=== PATIENT | female | born 1975 | race Caucasian/White ===

== ENCOUNTER 2017-06-14 12:51 | Emergency (ER) | payer OTHER, MEDICARE ==
[~2017-06-14] VITALS: Ht 157.5 cm; Wt 66.0 kg
[2017-06-14 12:53] VITALS: BP 132/80; PULSE 74; RESP 20; TEMP 98.8; O2SAT 98
[2017-06-14 13:25] VITALS: O2SAT 97
--- NOTE | 2017-06-14 13:27 | PD ---
HPI Chief Complaint: Edema Time Seen by Provider: 13:08 Travel History International Travel<30 days: No Contact w/Intl Traveler<30days: No Traveled to known affect area: No History of Present Illness HPI Patient is a 42-year-old female who presents to emergency room complaints of bilateral lower extremity leg edema. Patient reports that for the past 2-3 days , she has noticed increased swelling in her legs, she has noticed worsening swelling in the right lower extremity when compared to her left lower extremity. Patient reports no recent travels or trips, denies history of PE or DVT. Patient denies any chest pain or shortness of breath, reports that sometimes when she has increased swelling, she has shooting pains to different areas of body. Patient with no chest pain or shortness breath at this time. 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 She also has history of seizures. Denies any vision change or neuro deficits. Reports that she has left upper and left lower extremity weakness at baseline neurological deficits after her AVM surgery as a child. [facility] Social History Alcohol Use: No Tobacco Use: No Substance Use: No Allergies-Medications (Allergen,Severity, Reaction): Coded Allergies: No Known Allergies (Verified Allergy, Unknown, 06/14/17) Reported Meds & Prescriptions Reported Meds & Active Scripts Active Reported Simvastatin 10 Mg Tab 10 Mg PO DAILY Carbamazepine 200 Mg Tab 200 Mg PO BID Gabapentin 600 Mg Tab 600 Mg PO TID Review of Systems General / Constitutional: No: Fever Eyes: No: Visual changes HENT: No: Headaches Cardiovascular: No: Chest Pain or Discomfort Respiratory: No: Shortness of Breath Gastrointestinal: No: Abdominal Pain Genitourinary: No: Dysuria Musculoskeletal: Positive: Edema, No: Pain Skin: No Rash Neurologic: No: Weakness Psychiatric: No: Depression Endocrine: No: Polydipsia Hematologic/Lymphatic: No: Easy Bruising Physical Exam Narrative GENERAL: NAD SKIN: Focused skin assessment warm/dry. HEAD: Atraumatic. Normocephalic. EYES: Pupils equal and round. No scleral icterus. No injection or drainage. ENT: No nasal bleeding or discharge. Mucous membranes pink and moist. NECK: Trachea midline. No JVD. CARDIOVASCULAR: Regular rate and rhythm. No murmur appreciated. RESPIRATORY: No accessory muscle use. Clear to auscultation. Breath sounds equal bilaterally. GASTROINTESTINAL: Abdomen soft, non-tender, nondistended. Hepatic and splenic margins not palpable. MUSCULOSKELETAL: No obvious deformities. No clubbing. No cyanosis. +2 edema to RLL, pulses intact, neurovascularly intact NEUROLOGICAL: Awake and alert. No obvious cranial nerve deficits. Motor grossly within normal limits. Normal speech. PSYCHIATRIC: Appropriate mood and affect; insight and judgment normal. Data Data Last Documented VS Vital Signs Date Time Temp Pulse Resp B/P (MAP) Pulse Ox O2 Delivery O2 Flow Rate FiO2 06/14/17 13:25 97 Room Air 06/14/17 12:53 98.8 74 20 Orders Orders Complete Blood Count With Diff (06/14/17 13:) Comprehensive Metabolic Panel (06/14/17 13:17) Act Partial Throm Time (Ptt) (06/14/17 13:17) Prothrombin Time / Inr (Pt) (06/14/17 13:17) Magnesium (Mg) (06/14/17 13:17) Urinalysis - C+S If Indicated (06/14/17 13:17) Iv Access Insert/Monitor (06/14/17 13:17) Electrocardiogram (06/14/17 13:17) Ecg Monitoring (06/14/17 13:17) Oximetry (06/14/17 13:17) Sodium Chloride 0.9% Flush (Ns Flush) (06/14/17 13:30) Us Leg Venous Doppler Bilat (06/14/17 ) Ed Urine Pregnancytest Poc (06/14/17 13:20) Carbamazepine (Tegretol) (06/14/17 13:25) Labs Laboratory Tests Test 06/14/17 13:20 06/14/17 13:30 Urine Color YELLOW Urine Turbidity HAZY Urine pH 8.0 Urine Specific [place] 1.023 Urine Protein TRACE mg/dL Urine Glucose (UA) NEG mg/dL Urine Ketones NEG mg/dL Urine Occult Blood NEG Urine Nitrite NEG Urine Bilirubin NEG Urine Urobilinogen LESS THAN 2.0 MG/DL Urine Leukocyte Esterase NEG Urine RBC 4 /hpf Urine WBC 1 /hpf Urine Squamous Epithelial Cells 2 /hpf Urine Mucus FEW /lpf Microscopic Urinalysis Comment CULT NOT INDICATED White Blood Count 9.7 TH/MM3 Red Blood Count 4.45 MIL/MM3 Hemoglobin 11.3 GM/DL Hematocrit 34.3 % Mean Corpuscular Volume 77.0 FL Mean Corpuscular Hemoglobin 25.4 PG Mean Corpuscular Hemoglobin Concent 32.9 % Red Cell Distribution Width 15.7 % Platelet Count 257 TH/MM3 Mean Platelet Volume 9.1 FL Neutrophils (%) (Auto) 70.5 % Lymphocytes (%) (Auto) 22.4 % Monocytes (%) (Auto) 6.8 % Eosinophils (%) (Auto) 0.0 % Basophils (%) (Auto) 0.3 % Neutrophils # (Auto) 6.8 TH/MM3 Lymphocytes # (Auto) 2.2 TH/MM3 Monocytes # (Auto) 0.7 TH/MM3 Eosinophils # (Auto) 0.0 TH/MM3 Basophils # (Auto) 0.0 TH/MM3 CBC Comment DIFF FINAL Differential Comment Prothrombin Time 10.4 SEC Prothromb Time International Ratio 0.9 RATIO Activated Partial Thromboplast Time 23.7 SEC Blood Urea Nitrogen 7 MG/DL Creatinine 0.51 MG/DL Random Glucose 87 MG/DL Total Protein 7.0 GM/DL Albumin 3.3 GM/DL Calcium Level 8.5 MG/DL Magnesium Level 1.9 MG/DL Alkaline Phosphatase 72 U/L Aspartate Amino Transf (AST/SGOT) 35 U/L Alanine Aminotransferase (ALT/SGPT) 17 U/L Total Bilirubin 0.3 MG/DL Sodium Level 138 MEQ/L Potassium Level 4.3 MEQ/L Chloride Level 106 MEQ/L Carbon Dioxide Level 25.3 MEQ/L Anion Gap 7 MEQ/L Estimat Glomerular Filtration Rate 134 ML/MIN Carbamazepine (Tegretol) Level 16.5 MCG/ML MDM Medical Decision Making Medical Screen Exam Complete: Yes Emergency Medical Condition: Yes Interpretation(s) EKG at 1319: NSR at 80bpm, qt/qtc: 379/415, no acute st or t wave changes Vital Signs Date Time Temp Pulse Resp B/P (MAP) Pulse Ox O2 Delivery O2 Flow Rate FiO2 06/14/17 13:25 97 Room Air 06/14/17 12:53 98.8 74 20 132/80 (97) 98 Room Air Laboratory Tests Test 06/14/17 13:20 06/14/17 13:30 Urine Color YELLOW (YELLW/STRAW) Urine Turbidity HAZY (CLEAR) Urine pH 8.0 (5.0-8.5) Urine Specific [place] 1.023 (1.002-1.035) Urine Protein TRACE mg/dL (NEG-TRACE) Urine Glucose (UA) NEG mg/dL (NEG) Urine Ketones NEG mg/dL (NEG) Urine Occult Blood NEG (NEG) Urine Nitrite NEG (NEG) Urine Bilirubin NEG (NEG) Urine Urobilinogen LESS THAN 2.0 MG/DL (LESS Urine Leukocyte Esterase NEG (NEG) Urine RBC 4 /hpf (0-3) Urine WBC 1 /hpf (0-5) Urine Squamous Epithelial Cells 2 /hpf (0-5) Urine Mucus FEW /lpf (OCC) Microscopic Urinalysis Comment CULT NOT INDICATED White Blood Count 9.7 TH/MM3 (4.0-11.0) Red Blood Count 4.45 MIL/MM3 (4.00-5.30) Hemoglobin 11.3 GM/DL (11.6-15.3) Hematocrit 34.3 % (35.0-46.0) Mean Corpuscular Volume 77.0 FL (80.0-100.0) Mean Corpuscular Hemoglobin 25.4 PG (27.0-34.0) Mean Corpuscular Hemoglobin Concent 32.9 % (32.0-36.0) Red Cell Distribution Width 15.7 % (11.6-17.2) Platelet Count 257 TH/MM3 (150-450) Mean Platelet Volume 9.1 FL (7.0-11.0) Neutrophils (%) (Auto) 70.5 % (16.0-70.0) Lymphocytes (%) (Auto) 22.4 % (9.0-44.0) Monocytes (%) (Auto) 6.8 % (0.0-8.0) Eosinophils (%) (Auto) 0.0 % (0.0-4.0) Basophils (%) (Auto) 0.3 % (0.0-2.0) Neutrophils # (Auto) 6.8 TH/MM3 (1.8-7.7) Lymphocytes # (Auto) 2.2 TH/MM3 (1.0-4.8) Monocytes # (Auto) 0.7 TH/MM3 (0-0.9) Eosinophils # (Auto) 0.0 TH/MM3 (0-0.4) Basophils # (Auto) 0.0 TH/MM3 (0-0.2) CBC Comment DIFF FINAL Differential Comment Prothrombin Time 10.4 SEC (9.8-11.6) Prothromb Time International Ratio 0.9 RATIO Activated Partial Thromboplast Time 23.7 SEC (24.3-30.1) Blood Urea Nitrogen 7 MG/DL (7-18) Creatinine 0.51 MG/DL (0.50-1.00) Random Glucose 87 MG/DL (74-106) Total Protein 7.0 GM/DL (6.4-8.2) Albumin 3.3 GM/DL (3.4-5.0) Calcium Level 8.5 MG/DL (8.5-10.1) Magnesium Level 1.9 MG/DL (1.5-2.5) Alkaline Phosphatase 72 U/L (45-117) Aspartate Amino Transf (AST/SGOT) 35 U/L (15-37) Alanine Aminotransferase (ALT/SGPT) 17 U/L (10-53) Total Bilirubin 0.3 MG/DL (0.2-1.0) Sodium Level 138 MEQ/L (136-145) Potassium Level 4.3 MEQ/L (3.5-5.1) Chloride Level 106 MEQ/L (98-107) Carbon Dioxide Level 25.3 MEQ/L (21.0-32.0) Anion Gap 7 MEQ/L (5-15) Estimat Glomerular Filtration Rate 134 ML/MIN (>89) Carbamazepine (Tegretol) Level 16.5 MCG/ML (4.0-12.0) Last Impressions Lower Extremity Ultrasound 06/14/17 0000 Signed Impressions: Service Date/Time: Wednesday, June 14, 2017 13:55 - CONCLUSION: Negative for venous thrombosis. Lucien Bearden MD FACR Differential Diagnosis Differential includes DVT, electrolyte abnormality Narrative Course Patient is a 42-year-old female who presents to emergency room with complaints of swelling to her right lower extremity for the past 2-3 days. Patient with no chest pain or shortness of breath, she has no history of PE or DVT. Lab work obtained as well as lower extremity US ordered. Last Impressions Lower Extremity Ultrasound 06/14/17 0000 Signed Impressions: Service Date/Time: Wednesday, June 14, 2017 13:55 - CONCLUSION: Negative for venous thrombosis. Lucien Bearden MD FACR Patient with no evidence of DVT to lower extremities. CBC & BMP Diagram 06/14/17 13:30 Total Protein 7.0, Albumin 3.3 L, Calcium Level 8.5, Magnesium Level 1.9, Alkaline Phosphatase 72, Aspartate Amino Transf (AST/SGOT) 35, Alanine Aminotransferase (ALT/SGPT) 17, Total Bilirubin 0.3 Tegretol level 16.5 which is elevated. VSS Vital Signs Date Time Temp Pulse Resp B/P (MAP) Pulse Ox O2 Delivery O2 Flow Rate FiO2 06/14/17 13:25 97 Room Air 06/14/17 12:53 98.8 74 20 132/80 (97) 98 Room Air Discussed with patient need to hold Tegretol for today, she will need to call her pcp for further instructions as to when to restart tegretol. She does not have a neurologic or cardiovascular or anticholinergic symptoms at this time. She is not demonstrate any drowsiness, nystagmus or tachycardia. She is not lethargic, hypotensive, does not have any arrhythmia on her EKG. Patient asystematic at this time. Patient will follow-up with her primary care tomorrow, understands need for repeat labs on her legs 1 week if swelling persists. Signs and symptoms of when to return to the emergency room was reviewed patient in detail. Diagnosis Primary Impression: Leg swelling Additional Impression: Elevated Tegretol level Patient Instructions: General Instructions Additional Instructions: Please provide patient with a copy of her lab work at discharge Please have your ultrasound of your legs repeated in 1 week if swelling persist Please hold your Tegretol today, please call your primary care doctor tomorrow for further instructions on restarting your medications as your level was elevated today Return to the emergency room if symptoms worsen or progress Return to the emergency room as needed. Disposition: 01 DISCHARGE HOME Condition: Stable Astrid Lazar DO Jun 14, 2017 13:27
[2017-06-14] MEDS ORDERED: CARB200T PO (13:29)
[2017-06-14] MEDS ORDERED: GABA600T PO (13:29)
[2017-06-14] MEDS ORDERED: SIMV10TA PO (13:29)
[2017-06-14] MEDS ORDERED: SODIUM CHLORIDE 0.9% FLUSH 10 ML FLUSH IVF PRN (13:30)
[2017-06-14 13:44] LABS: AUTOMATED NEUTROPHIL # 6.8 TH/MM3 (1.8-7.7); BASOPHIL % 0.3 % (0.0-2.0); HEMATOCRIT 34.3 % (35.0-46.0); HEMO FLAGS DIFF FINAL; LYMPH % 22.4 % (9.0-44.0); LYMPHOCYTE # 2.2 TH/MM3 (1.0-4.8); MEAN CORPUSCULAR HEMOGLOBIN 25.4 PG (27.0-34.0); MEAN CORPUSCULAR HGB CONC 32.9 % (32.0-36.0); MONO % 6.8 % (0.0-8.0); NEUT % 70.5 % (16.0-70.0); PLATELET COUNT 257 TH/MM3 (150-450); RED BLOOD COUNT 4.45 MIL/MM3 (4.00-5.30); RED CELL DISTRIBUTION WIDTH 15.7 % (11.6-17.2); WHITE BLOOD COUNT 9.7 TH/MM3 (4.0-11.0)
[2017-06-14 13:47] LABS: BLOOD, URINE NEG (NEG); COMMENT (UR) CULT NOT INDICATED; CULTURE IF INDICATED CULT NOT INDICATED; GLUCOSE,URINE NEG (NEG); KETONE, URINE NEG (NEG); MUCUS URINE FEW /lpf (OCC); NITRITE,URINE NEG (NEG); SQUAMOUS EPITHELIAL CELL URINE 2 /hpf (0-5); URINE COLOR YELLOW (YELLW/STRAW)
[2017-06-14 13:53] LABS: APTT (PATIENT) 23.7 SEC (24.3-30.1); INTERNATIONAL NORMALIZED RATIO 0.9 RATIO; PROTHROMBIN TIME - PATIENT 10.4 SEC (9.8-11.6)
[2017-06-14 13:56] LABS: ALT (GPT) 17 U/L (10-53)
[2017-06-14 13:59] LABS: ALKALINE PHOSPHATASE 72 U/L (45-117); TOTAL BILIRUBIN ADULT 0.3 MG/DL (0.2-1.0)
[2017-06-14 14:04] LABS: ANION GAP 7 MEQ/L (5-15); BICARBONATE 25.3 MEQ/L (21.0-32.0); BLOOD UREA NITROGEN 7 MG/DL (7-18); CHLORIDE 106 MEQ/L (98-107); GLOMERULAR FILTRATION RATE 134 ML/MIN (>89); MAGNESIUM 1.9 MG/DL (1.5-2.5); SODIUM (NA) 138 MEQ/L (136-145)
[2017-06-14 14:05] LABS: AST (GOT) 35 U/L (15-37); POTASSIUM 4.3 MEQ/L (3.5-5.1)
--- NOTE | 2017-06-14 14:29 | RADRPT ---
EXAM DATE/TIME: 06/14/2017 13:55 [facility] COMPARISON: No previous studies available for comparison. INDICATIONS : Bilateral leg swelling. MEDICAL HISTORY : Seizures. SURGICAL HISTORY : Appendectomy. section. Ectopic . AVM right brain. ENCOUNTER: Initial ACUITY: 3 days PAIN SCORE: 8/10 LOCATION: Bilateral legs. TECHNIQUE: Venous ultrasound of the left and right leg was performed from the inguinal ligament to the proximal calf. Real-time, color Doppler and spectral tracing, compression and augmentation techniques were us ed. FINDINGS: RIGHT LEG: There is normal compressibility of the deep venous system from the inguinal region to the proximal ca lf. No echogenic clot is seen in the lumen of the common femoral, femoral, popliteal, and posterior tibial veins. There is a normal response of the venous system to proximal and distal augmentation an d respiration. LEFT LEG: There is normal compressibility of the deep venous system from the inguinal region to the proximal ca lf. No echogenic clot is seen in the lumen of the common femoral, femoral, popliteal, and posterior tibial veins. There is a normal response of the venous system to proximal and distal augmentation an d respiration. CONCLUSION: Negative for venous thrombosis. Lucien Bearden MD FACR on June 14, 2017 at 14:26 Board Certified Radiologist. This report was verified electronically.
--- NOTE | 2017-06-15 14:02 | EKG ---
Date Performed: 06/14/2017 Time Performed: 13:19:58 PTAGE: 42 years EKG: Sinus rhythm NORMAL ECG NO PREVIOUS TRACING DOCTOR: Rudi Hinson Interpretating Date/Time 06/15/2017 14:01:41
== END 2017-06-14 16:55 | disposition home or self-care (01) ==
LOC: NEPE 12:51 → EDSEX 12:51 → NEPE 16:55
DX: R60.0 Localized edema (principal); M79.89 Other specified soft tissue disorders; R53.1 Weakness
CPT/HCPCS: 80053; 80156; 81001; 83735; 84703; 85025; 85610; 85730; 93005; 93970

== ENCOUNTER 2017-06-14 21:58 | Inpatient (IN) | payer MEDICARE, OTHER ==
[~2017-06-14] VITALS: Ht 162.6 cm; Wt 69.3 kg
[~2017-06-14 21:58] MED LIST: CARB200T PO; GABA600T PO; SIMV10TA PO
[2017-06-14 22:31] VITALS: BP 154/67; PULSE 82; RESP 16; O2SAT 99
[2017-06-14 22:35] VITALS: BP 154/67; PULSE 79; RESP 16; TEMP 98.6; O2SAT 99
--- NOTE | 2017-06-14 22:42 | PD ---
HPI Chief Complaint: Seizure Time Seen by Provider: 22:33 Travel History International Travel<30 days: No Contact w/Intl Traveler<30days: No Traveled to known affect area: No History of Present Illness HPI The patient is a 42 year old female who presents to the [facility] emergency department with a history of after being discharged from the ER earlier today having 8 separate seizures. She reports that her seizures are focal seizures involving the left side of her body with jerking movements. She reports that she remains awake during the seizure activity. She reports that this is her usual form of seizure activity. She reports that she usually will only have a seizure once every 3-5 months. She reports that she has a history of seizure disorder since 5 years of age when she had brain surgery related to an AVM. She also has since 5 years of age a left-sided facial droop, left upper extremity weakness with contracture and lower extremity weakness with muscle atrophy. The patient reports that she was seen earlier today in the emergency department related to lower extremity edema and left-sided abdominal pain. She reports that she was told that her seizure medication level was too high and she needed to hold it. The patient reports that she is on Tegretol and gabapentin for her seizures. Her neurologist is Dr. Jorgensen. She cannot recall the name of her primary care physician. The patient on review of systems reports that she has had diarrhea today times one. She denies having any blood in her stool or black or tarry stools. She denies having any known recent fevers, cough, congestion, neck pain, chest pain, shortness of breath, vomiting, urinary symptoms, or neurologic symptoms. [facility] Past Medical History Narrative Medical The patient's past medical history is significant for having an AVM in childhood status post surgical removal at 5 years of age, history of seizure disorder, history of hyperlipidemia. The patient was newly placed on Simvastatin approx 2 months ago. High Cholesterol: Yes Cerebrovascular Accident: Yes (LEFT SIDED WEAKNESS) Respiratory: Yes (ASTHMA) Seizures: Yes Tetanus Vaccination: Unknown ?: Unknown : 4 Para: 1 Miscarriage: 3 Ectopic : Yes (2) Past Surgical History Narrative Surgical The patient's past surgical history is significant for 2 ectopic surgeries, appendectomy, brain surgery as child related to an AVM, bilateral tubal ligation. Appendectomy: Yes Arteriovenous Shunt: Yes (AVM R BRAIN) Section: Yes Neurologic Surgery: Yes (AVM R BRAIN) Social History Alcohol Use: No Tobacco Use: No Substance Use: No Allergies-Medications (Allergen,Severity, Reaction): Coded Allergies: No Known Allergies (Verified Allergy, Unknown, 06/14/17) Reported Meds & Prescriptions Reported Meds & Active Scripts Active Reported Simvastatin 10 Mg Tab 10 Mg PO DAILY Carbamazepine 200 Mg Tab 400 Mg PO TID Gabapentin 600 Mg Tab 600 Mg PO TID Review of Systems Except as stated in HPI: all other systems reviewed are Neg General / Constitutional: No: Fever Eyes: No: Visual changes HENT: No: Headaches Cardiovascular: No: Chest Pain or Discomfort Respiratory: No: Shortness of Breath Gastrointestinal: Positive: Diarrhea, Abdominal Pain, Changes in Bowel Habits, No: Nausea, Vomiting, Hematemesis, Hematochezia, Constipation, Indigestion, Loss of Appetite Genitourinary: No: Dysuria Musculoskeletal: No: Pain Skin: No Rash Neurologic: Positive: Seizures, No: Weakness, Focal Abnormalities, Change in Mentation, Slurred Speech, Sensory Disturbance Psychiatric: No: Depression Endocrine: No: Polydipsia Hematologic/Lymphatic: No: Easy Bruising Physical Exam Narrative General: The patient is well-developed well-nourished female in no acute distress. Head and Neck exam: Head is normocephalic atraumatic. Eyes: EOMI, pupils are equal round and reactive to light. Nose: Midline septum with pink mucous membranes Mouth: Dentition unremarkable. Moist mucus membranes. Posterior oropharynx is not erythematous. No tonsillar hypertrophy. Uvula midline. Airway patent. Neck: No palpable lymphadenopathy. No nuchal rigidity. No thyromegaly. Cardiovascular: Regular rate and rhythm without murmurs, gallops, or rubs. No pulse deficit to the extremities. Lungs: Clear to auscultation bilaterally. No wheezes, rhonchi, or rales. Abdomen: Soft, without tenderness to palpation in all 4 quadrants of the abdomen. No guarding, rebound, or rigidity. Negative Beltrami sign. Extremities: No clubbing, cyanosis, or edema. 2+ pulses in all 4 extremities. Back: No spinous process tenderness to palpation. No costovertebral angle tenderness to palpation. Neurologic Exam: Cranial nerves 2-12 were intact on exam. Strength is 5/5 in all 4 extremities. No sensory deficits noted. No dysdiadochokinesis. Good finger to nose and Heel to simmons bilaterally. Skin Exam: No rash noted. Intact skin that is warm and dry. Data Data Last Documented VS Vital Signs Date Time Temp Pulse Resp B/P (MAP) Pulse Ox O2 Delivery O2 Flow Rate FiO2 06/15/17 00:05 86 29 125/83 (97) 95 Room Air 06/14/17 22:35 98.6 Orders Orders Comprehensive Metabolic Panel (06/14/17 22:39) Lipase (06/14/17 22:39) Magnesium (Mg) (06/14/17 22:39) Ct Brain W/O Iv Contrast(Rout) (06/14/17 22:39) Iv Access Insert/Monitor (06/14/17 22:39) Ecg Monitoring (06/14/17 22:39) Oximetry (06/14/17 22:39) Ed Urine Pregnancytest Poc (06/14/17 22:39) Drug Screen, Random Urine (06/14/17 22:39) Alcohol (Ethanol) (06/14/17 22:39) Ct Abd/Pel W/O Iv Contrast (06/14/17 23:26) Lorazepam Inj (Ativan Inj) (06/15/17 00:21) Lorazepam Inj (Ativan Inj) (06/15/17 00:45) Sodium Chlor 0.9% 1000 Ml Inj (Ns 1000 M (06/15/17 00:45) Levetiracetam 1000 Mg Inj (Keppra 1000 M (06/15/17 00:45) Admit Order (Ed Use Only) (06/15/17 01:36) Labs Laboratory Tests Test 06/14/17 22:53 Blood Urea Nitrogen 7 MG/DL Creatinine 0.50 MG/DL Random Glucose 123 MG/DL Total Protein 7.1 GM/DL Albumin 3.4 GM/DL Calcium Level 8.2 MG/DL Magnesium Level 1.7 MG/DL Alkaline Phosphatase 74 U/L Aspartate Amino Transf (AST/SGOT) 10 U/L Alanine Aminotransferase (ALT/SGPT) 16 U/L Total Bilirubin 0.1 MG/DL Sodium Level 138 MEQ/L Potassium Level 3.8 MEQ/L Chloride Level 103 MEQ/L Carbon Dioxide Level 26.7 MEQ/L Anion Gap 8 MEQ/L Estimat Glomerular Filtration Rate 137 ML/MIN Lipase 130 U/L Ethyl Alcohol Level LESS THAN 3 MG/DL MDM Medical Decision Making Medical Screen Exam Complete: Yes Emergency Medical Condition: Yes Medical Record Reviewed: Yes Interpretation(s) Last Impressions Abdomen/Pelvis CT 06/14/[id number] Signed Impressions: Service Date/Time: Thursday, June 15, 2017 01:03 - CONCLUSION: 1. No radiopaque renal calculi or obstructive uropathy. 2. Cholelithiasis. 3. Appendix is not directly visualized. 4. 3.5 x 3.0 x 3.1 cm probable right ovarian cyst. Jose Martinez MD Head CT 06/14/[id number] Signed Impressions: Service Date/Time: Thursday, June 15, 2017 00:59 - CONCLUSION: 1. Postsurgical features of prior right frontoparietal craniotomy with heterogeneous diffuse encephalomalacic defect and dystrophic ossifications in the right parietal high convexities. 2. No acute intracranial abnormality. Jose Martinez MD Differential Diagnosis Recurrent seizure activity, versus status epilepticus, versus electrolyte abnormality, versus intracranial abnormality Narrative Course During the course of the patients emergency department visit, the patients history, examination, and differential diagnosis were reviewed with the patient. The patient had IV access obtained and blood work sent for analysis. The patient was on a personnel monitor with oximetry and blood pressure monitoring. CT scan of the brain was ordered. Given the patient's complaints of abdominal pain and no imaging being done earlier today in the emergency department a CT scan of the abdomen and pelvis was ordered after her urinalysis revealed microscopic hematuria to rule out kidney stone or other acute abnormality. While the patient was being observed and worked up the patient developed a focal seizure. The patient was given Ativan 1 mg IV. The focal seizure became generalized and tonic. The patient was nonverbal at that time. According to her she's never had a seizure like this previously. The patient will be loaded with Keppra 1000 mg IV. The patient will be admitted to the hospital for continued evaluation and treatment for recurrent seizure activity. The patients laboratory studies were reviewed and remarkable for a CMP that shows a glucose of 123, calcium 8.2, AST 10, lipase 130, as the patient was seen in the emergency department earlier today a CBC was not repeated as this showed a white count of 9.7, hemoglobin 11.3, platelets 257 with 70.5 neutrophils, urinalysis done earlier today reveals 4 rbc's, otherwise unremarkable. Carbamazepine level earlier today was elevated at 16.5, alcohol level less than 3 Radiology studies were reviewed and remarkable for an ultrasound done earlier today during her first emergency department visit that revealed no evidence of DVT in bilateral lower extremities, CT scan of the brain done during this emergency department visit reveals postsurgical features of prior right frontoparietal craniotomy with heterogeneous diffuse encephalomalacia defect and dystrophic ossifications in the right parietal high convexities. No acute intracranial abnormality. CT scan of abdomen and pelvis to rule out kidney stone given the patient's microscopic hematuria and left-sided abdominal pain revealed no radiopaque renal calculi or obstructive uropathy, cholelithiasis was noted, her appendix was not directly visualized. The patient had a 3.5 x 3 x 3.1 cm probable right ovarian cyst. Given the patient's repeated seizure activity, the patient will be admitted to the hospital. The patients results were discussed with the patient, including the plan of care. I explained that further testing and/ or monitoring is indicated based on the patients history, examination, and/ or laboratory findings. Therefore, I recommended admission for additional evaluation. The patient expressed understanding and was agreeable with this plan. The patient was admitted to the hospital in guarded condition and [facility] Physician Communication Physician Communication The patient's case is discussed with Dr. Zhang who did agree to admit the patient for further evaluation and treatment at this time. Diagnosis Primary Impression: Recurrent seizures Additional Impression: Tegretol toxicity Qualified Codes: T42.1X1A - Poisoning by iminostilbenes, accidental ( unintentional), initial encounter Admitting Information Admitting Physician Requests: Admit Gabriela Hayden MD Jun 14, 2017 22:42
[2017-06-14 22:43] VITALS: O2SAT 99
[2017-06-14 23:30] VITALS: BP 118/60; PULSE 86; RESP 18; O2SAT 99
[2017-06-14 23:33] LABS: ANION GAP 8 MEQ/L (5-15); AST (GOT) 10 U/L (15-37); BICARBONATE 26.7 MEQ/L (21.0-32.0); BLOOD UREA NITROGEN 7 MG/DL (7-18); CHLORIDE 103 MEQ/L (98-107); GLOMERULAR FILTRATION RATE 137 ML/MIN (>89); MAGNESIUM 1.7 MG/DL (1.5-2.5); POTASSIUM 3.8 MEQ/L (3.5-5.1); SODIUM (NA) 138 MEQ/L (136-145)
[2017-06-14 23:34] LABS: ALT (GPT) 16 U/L (10-53)
[2017-06-14 23:36] LABS: ALKALINE PHOSPHATASE 74 U/L (45-117); TOTAL BILIRUBIN ADULT 0.1 MG/DL (0.2-1.0)
[2017-06-14 23:40] LABS: ALCOHOL LESS THAN 3 MG/DL (0-5)
[2017-06-15] VITALS (8 sets, daily range): BP systolic 113–135; BP diastolic 70–91; PULSE 80–96; RESP 18–29; TEMP 98–98.3; O2SAT 95–100
[2017-06-15] MEDS ORDERED: LORazepam 2 MG/ML VIAL ONE (00:21)
[2017-06-15] MEDS ORDERED: levETIRAcetam 1000 MG INJ 100 ML IV ONE (00:45)
[2017-06-15] MEDS ORDERED: LORazepam 2 MG/ML VIAL IV PUSH ONE (00:45)
[2017-06-15] MEDS ORDERED: SODIUM CHLOR 0.9% 1000 ML INJ 1,000 ML IV ONE (00:45)
--- NOTE | 2017-06-15 01:28 | RADRPT ---
EXAM DATE/TIME: 06/15/2017 00:59 [facility] COMPARISON: No previous studies available for comparison. INDICATIONS : Seizure. RADIATION DOSE: 51.87 CTDIvol (mGy) MEDICAL HISTORY : Seizures. SURGICAL HISTORY : Craniotomy. ENCOUNTER: Initial ACUITY: 1 day PAIN SCALE: 0/10 LOCATION: cranial TECHNIQUE: Multiple contiguous axial images were obtained of the head. Using automated exposure control and adj ustment of the mA and/or kV according to patient size, radiation dose was kept as low as reasonably a chievable to obtain optimal diagnostic quality images. DICOM format image data is available electro nically for review and comparison. FINDINGS: CEREBRUM: Postsurgical features of prior right frontoparietal craniotomy with extensive heterogeneous encephalo malacic defect and dystrophic calcifications in the right parietal high convexities. There are also b ulky falx calcifications with a small metallic foreign body on the right anteriorly. ventricles are n ormal for degree of atrophy. No evidence of midline shift, mass lesion, hemorrhage or acute infarcti on. No extra-axial fluid collections are seen. POSTERIOR FOSSA: The cerebellum and brainstem are intact. The 4th ventricle is midline. The cerebellopontine angle i s unremarkable. EXTRACRANIAL: The visualized portion of the orbits is intact. CONCLUSION: 1. Postsurgical features of prior right frontoparietal craniotomy with heterogeneous diffuse encephal omalacic defect and dystrophic ossifications in the right parietal high convexities. 2. No acute intracranial abnormality. Jose Martinez MD on June 15, 2017 at 1:20 Board Certified Radiologist. This report was verified electronically.
--- NOTE | 2017-06-15 01:32 | RADRPT ---
EXAM DATE/TIME: 06/15/2017 01:03 [facility] COMPARISON: No previous studies available for comparison. INDICATIONS : Bilateral flank pain. ORAL CONTRAST: No oral contrast ingested. RADIATION DOSE: 9.31 CTDIvol (mGy) MEDICAL HISTORY : Seizures. SURGICAL HISTORY : Craniotomy. ENCOUNTER: Initial ACUITY: 1 day PAIN SCALE: 5/10 LOCATION: Bilateral flank TECHNIQUE: Volumetric scanning of the abdomen and pelvis was performed. Using automated exposure control and ad justment of the mA and/or kV according to patient size, radiation dose was kept as low as reasonably achievable to obtain optimal diagnostic quality images. DICOM format image data is available electro nically for review and comparison. FINDINGS: LOWER LUNGS: The visualized lower lungs are grossly clear. LIVER: Homogeneous density without lesion. There is no dilation of the biliary tree. There are multiple gal lstones in the gallbladder which otherwise appears unremarkable by CT. SPLEEN: Normal size without lesion. PANCREAS: Within normal limits. KIDNEYS: Kidneys are symmetrical in size without evidence for hydronephrosis or radiopaque renal calculi. ADRENAL GLANDS: Within normal limits. VASCULAR: There is no aortic aneurysm. BOWEL/MESENTERY: Appendix is not directly visualized. Bowel otherwise appears unremarkable without evidence for obstru ction. No significant free fluid or drainable fluid collection. No free air. ABDOMINAL WALL: Within normal limits. RETROPERITONEUM: There is no lymphadenopathy. BLADDER: No wall thickening or mass. REPRODUCTIVE: There is a 3.5 x 3.0 x 3.1 cm fluid density right adnexal cystic lesion like reflecting an ovarian cy st. INGUINAL: There is no lymphadenopathy or hernia. MUSCULOSKELETAL: Within normal limits for patient age. CONCLUSION: 1. No radiopaque renal calculi or obstructive uropathy. 2. Cholelithiasis. 3. Appendix is not directly visualized. 4. 3.5 x 3.0 x 3.1 cm probable right ovarian cyst. Jose Martinez MD on June 15, 2017 at 1:26 Board Certified Radiologist. This report was verified electronically.
[2017-06-15] MEDS ORDERED: SODIUM CHLORIDE 0.9% FLUSH 10 ML FLUSH IV FLUSH PRN (02:00)
[2017-06-15] MEDS ORDERED: ACETAMINOPHEN 325 MG TAB PO PRN (02:00)
[2017-06-15] MEDS: SODIUM CHLORIDE 0.9% FLUSH 10 ML FLUSH IV FLUSH SCH ×2 (08:32→21:00)
--- NOTE | 2017-06-15 10:29 | HHI.HP ---
HPI Service [facility] Primary Care Physician Unknown Admission Diagnosis Seizure activity, tegretol toxicity Diagnoses: Chief Complaint: Multiple seizure activities. Travel History International Travel<30 Days: No Contact w/Intl Traveler <30 Da: No Traveled to Known Affected Are: No History of Present Illness Ms. Ellis is a 42-year-old female with a history of brain AVM as well as seizure disorder who presents to the emergency department on 06/14/2017 due to multiple seizure activities on her way home after being discharged from emergency department. Earlier on 06/14/2017 patient was seen in the emergency department for lower extremity edema and left-sided abdominal pain. As she was going home she had multiple seizures in the car as well as when she arrived home. She follows up with neurologist Dr. Jorgensen and she usually takes carbamazepine and gabapentin for seizure activities. Patient denies any loss of bowel or bladder control, tongue biting. Denies any chest pain, shortness of breath, fever or chills. No changes in bowel or bladder habits. She received 1000 mg IV Keppra in the emergency department. CT head did not reveal any acute intracranial abnormalities. CT abdomen pelvis showed cholelithiasis as well as a probable right ovarian cyst. Review of Systems Except as stated in HPI: all other systems reviewed are Neg Past Family Social History Past Medical History Seizure, asthma, brain AVM in childhood. Past Surgical History Appendectomy, section, brain AVM repair Reported Medications Simvastatin 10 Mg Tab 10 Mg PO DAILY Carbamazepine 200 Mg Tab 400 Mg PO TID Gabapentin 600 Mg Tab 600 Mg PO TID Allergies: Coded Allergies: No Known Allergies (Verified Allergy, Unknown, 06/14/17) Social History Denies using tobacco, alcohol, illicit drugs. Physical Exam Vital Signs Vital Signs Date Time Temp Pulse Resp B/P (MAP) Pulse Ox O2 Delivery O2 Flow Rate FiO2 06/15/17 04:01 98.0 90 18 122/71 (88) 99 06/15/17 03:47 06/15/17 02:39 94 18 113/70 (84) 99 Room Air 06/15/17 01:40 88 20 123/91 (102) 100 Room Air 06/15/17 00:05 86 29 125/83 (97) 95 Room Air 06/14/17 23:30 86 18 118/60 (79) 99 Room Air 06/14/17 22:43 99 06/14/17 22:35 98.6 79 16 154/67 (96) 99 Room Air 06/14/17 22:31 82 16 154/67 (96) 99 Physical Exam GENERAL: This is a well-nourished, well-developed patient, in no apparent distress. SKIN: No rashes, ecchymoses or lesions. Warm and dry. HEAD: Atraumatic. Normocephalic. No temporal or scalp tenderness. EYES: Pupils equal round and reactive. No injection or drainage. ENT: Nose without bleeding, purulent drainage or septal hematoma. Airway patent. NECK: Trachea midline. No lymphadenopathy. Supple, nontender, no meningeal signs. CARDIOVASCULAR: Regular rate and rhythm without murmurs, gallops, or rubs. No JVD. RESPIRATORY: Clear to auscultation. Breath sounds equal bilaterally. No wheezes , rales, or rhonchi. GASTROINTESTINAL: Abdomen soft, non-tender, nondistended. No guarding. MUSCULOSKELETAL: Extremities without clubbing, cyanosis, or edema. Left hand contracted. Left lower extremity strength 2 out of 5. Right upper extremity and right lower extremity strength 4 out of 5. NEUROLOGICAL: Awake and alert. Cranial nerves II through XII intact. No focal neurological deficits. Normal speech. Laboratory Laboratory Tests Test 06/14/17 22:53 Blood Urea Nitrogen 7 Creatinine 0.50 Random Glucose 123 Total Protein 7.1 Albumin 3.4 Calcium Level 8.2 Magnesium Level 1.7 Alkaline Phosphatase 74 Aspartate Amino Transf (AST/SGOT) 10 Alanine Aminotransferase (ALT/SGPT) 16 Total Bilirubin 0.1 Sodium Level 138 Potassium Level 3.8 Chloride Level 103 Carbon Dioxide Level 26.7 Anion Gap 8 Estimat Glomerular Filtration Rate 137 Lipase 130 Ethyl Alcohol Level LESS THAN 3 Result Diagram: 06/14/173 Imaging Last Impressions Abdomen/Pelvis CT 06/14/17 4690 Signed Impressions: Service Date/Time: Thursday, June 15, 2017 01:03 - CONCLUSION: 1. No radiopaque renal calculi or obstructive uropathy. 2. Cholelithiasis. 3. Appendix is not directly visualized. 4. 3.5 x 3.0 x 3.1 cm probable right ovarian cyst. Jose Martinez MD Head CT 06/14/17 2239 Signed Impressions: Service Date/Time: Thursday, June 15, 2017 00:59 - CONCLUSION: 1. Postsurgical features of prior right frontoparietal craniotomy with heterogeneous diffuse encephalomalacic defect and dystrophic ossifications in the right parietal high convexities. 2. No acute intracranial abnormality. MD Jos Mancia VTE Risk Assessment Caprini VTE Risk Assessment: No/Low Risk (score <= 1) Caprini Risk Assessment Model Point Value = 1 Point Value = 2 Point Value = 3 Point Value = 5 Age 41-60 Minor surgery BMI > 25 kg/m2 Swollen legs Varicose veins or History of unexplained or recurrent spontaneous Oral contraceptives or hormone replacement Sepsis (< 1 month) Serious lung disease, including pneumonia (< 1 month) Abnormal pulmonary function Acute myocardial infarction Congestive heart failure (< 1 month) History of inflammatory bowel disease Medical patient at bed rest Age 61-74 Arthroscopic surgery Major open surgery (> 45 min) Laparoscopic surgery (> 45 min) Malignancy Confined to bed (> 72 hours) Immobilizing plaster cast Central venous access Age >= 75 History of VTE Family history of VTE Factor V Leiden Prothrombin [id number] Lupus anticoagulant Anticardiolipin antibodies Elevated serum homocysteine Heparin-induced thrombocytopenia Other congenital or acquired thrombophilia Stroke (< 1 month) Elective arthroplasty Hip, pelvis, or leg fracture Acute spinal cord injury (< 1 month) Prophylaxis Regimen Total Risk Factor Score Risk Level Prophylaxis Regimen 0-1 Low Early ambulation 2 Moderate Order ONE of the following: *Sequential Compression Device (SCD) *Heparin 5000 units SQ BID 3-4 Higher Order ONE of the following medications: *Heparin 5000 units SQ TID *Enoxaparin/Lovenox 40 mg SQ daily (WT < 150 kg, CrCl > 30 mL/min) *Enoxaparin/Lovenox 30 mg SQ daily (WT < 150 kg, CrCl > 10-29 mL/min) *Enoxaparin/Lovenox 30 mg SQ BID (WT < 150 kg, CrCl > 30 mL/min) AND/OR *Sequential Compression Device (SCD) 5 or more Highest Order ONE of the following medications: *Heparin 5000 units SQ TID (Preferred with Epidurals) *Enoxaparin/Lovenox 40 mg SQ daily (WT < 150 kg, CrCl > 30 mL/min) *Enoxaparin/Lovenox 30 mg SQ daily (WT < 150 kg, CrCl > 10-29 mL/min) *Enoxaparin/Lovenox 30 mg SQ BID (WT < 150 kg, CrCl > 30 mL/min) AND *Sequential Compression Device (SCD) Assessment and Plan Problem List: (1) AVM (arteriovenous malformation) brain ICD Code: Q28.2 - Arteriovenous malformation of cerebral vessels (2) Recurrent seizures ICD Code: G40.909 - Epilepsy, unspecified, not intractable, without status epilepticus Status: Acute Assessment and Plan Ms. Ellis is a 42-year-old female with a history of brain AVM, seizure activities who presented to the emergency department due to multiple seizure activities as she was returning home after discharge from emergency department on 06/14/2017. - Multiple seizure activities - Status post 1 g IV Primary emergency department. - Discussed with neurologist Dr. Simmons who will evaluate patient later on today. We'll give patient 1 dose of 500 mg Keppra during the day - Start Keppra 500 mg twice a day starting at 9 PM. Continue gabapentin 600 mg 3 times a day. - Ativan for acute seizure activities. - Brain AVM - Patient apparently had some craniotomy done when she was 5 years old. Does not recall if she had require leaving of aneurysm or any other hardware placed. - Discussed with neurologist. We'll obtain MRI brain as well as MRA of the brain. Full code. SCDs. Discussed with RN, Dr. Simmons (Neurology). Meredith Lawson DO Jun 15, 2017 10:29
[2017-06-15] MEDS ORDERED: LORazepam 2 MG/ML VIAL IV PUSH PRN (10:30)
[2017-06-15] MEDS ORDERED: levETIRAcetam 500 MG TAB PO ONE (12:15)
[2017-06-15] MEDS: GABAPENTIN 300 MG CAP PO SCH ×2 (12:21→17:44)
--- NOTE | 2017-06-15 17:47 | MB ---
cc: ILSA REY MD DATE OF CONSULTATION 06/15/2017 REASON FOR CONSULTATION Seizures. HISTORY OF PRESENT ILLNESS Ms. Ellis is an 42-year-old female with past medical history with brain AVM that was diagnosed when she was 5 years of age and was conservatively treated as per the patient and she follows up with her neurologist, Dr. Jorgensen for this. He has her on Tegretol 200 mg three times daily and carbamazepine 1200 mg three times daily. She reports that she only has a seizure every 5-6 months while she is on this dose and she did not report any side effects of the medication and the confirms this. The seizures are described as partial seizures where she gets convulsions that involve the left upper and lower extremity, rarely involves the face, without loss of consciousness, tongue biting, foaming or loss of bladder or bowel control. As a matter of fact during the seizure she states that she is awake, she can talk to you. She denies having had grand mal seizures. The patient at baseline is with left facial weakness, left upper extremity spastic paresis and to a lesser degree spasticity of the left lower extremity and weakness of the left foot. Labs did reveal that carbamazepine level was supratherapeutic at 16.5 normal (4-12). The patient states that she started on "liver Medication" [id number] recently. She does not recall the name of neither her . REVIEW OF SYSTEMS A 12-point review of systems is negative except for what is stated in HPI. PAST MEDICAL HISTORY 1. Brain AVM since childhood. 2. Asthma. 3. Seizure disorder. PAST SURGICAL HISTORY 1. Appendectomy. 2. section. 3. Brain AVM repair with not much information about the details. MEDICATIONS 1. Simvastatin. 2. Carbamazepine 200 milligrams three times a day. 3. Gabapentin 1200 milligrams three times a day. ALLERGIES NO KNOWN ALLERGIES. SOCIAL HISTORY Denies tobacco, alcohol or illicit drug abuse. FAMILY HISTORY Next noncontributory PHYSICAL EXAMINATION GENERAL: The patient is awake, alert, not in apparent distress. Very anxious. HEENT: Atraumatic, normocephalic. Intact hearing and intact vision. NECK: Trachea in the midline. No carotid bruit. No signs of meningeal irritation. CARDIOVASCULAR: Regular rate and rhythm. RESPIRATORY: Clear to auscultation. No wheezes. GASTROINTESTINAL: Soft, nontender. MUSCULOSKELETAL: Extremities without clubbing, cyanosis or edema. There is contracture of the left hand. NEUROLOGIC: Awake, alert, oriented to time, person and place. Left facial weakness. No diplopia. No nystagmus. No dysarthria. Cranial nerves II-XII are grossly intact. Left upper extremity with left hand flexion contracture and spasticity with spastic weakness in a pyramidal distribution. Left lower extremity spasticity and weakness in the foraminal distribution. The right upper and lower extremity normal, 5/5 bilateral, symmetrical. Plantar left upgoing. Sensation intact bilateral and symmetrical. LABORATORY DATA Sodium 138, potassium 3.8, anion gap 8, BUN 7, calcium 8.2. AST 10, ALT 16, alkaline 74. Carbamazepine is supra-therapeutic at 16.5 normal 4-12. IMAGING - Head CT scan without contrast revealed postsurgical features of prior right frontoparietal craniotomy with heterogenous diffuse defect and dystrophic calcification in the right parietal high convexity. No acute intracranial abnormality. DIAGNOSTIC IMPRESSION 1. Remote history of AVM status post right frontal parietal craniectomy with residual spastic left-sided weakness. 2. Seizures. 3. Breakthrough seizures / series of seizures. 4. Carbamazepine level is supra-therapeutic. She has recently used some kind of herbal medication, she is not aware of what this is. PLAN 1. Neurological q.one hourly. 2. Hold the carbamazepine. 3. Continue gabapentin at current home dose and start Keppra 500 mg twice daily. 4. Brain MRI, brain MRA. 5. Seizure precautions. 6. Discussed with the attending physician Dr. Lawson. 7. DVT prophylaxis. Thank you for the opportunity to participate in the care of your patient. MD PATTY Farfan/BRANDON /3:21 PM /5:04 PM REMI
[2017-06-15] MEDS ORDERED: GADODIAMIDE PF 287 MG/ML 5 ML VIAL (for RAD MRI) IVCONTRAST ONE (21:23)
--- NOTE | 2017-06-15 21:49 | RADRPT ---
EXAM DATE/TIME: 06/15/2017 20:34 [facility] COMPARISON: CT BRAIN W/O CONTRAST, June 15, 2017, 0:59. INDICATIONS : Seizures. CONTRAST: 14 cc Omniscan (gadodiamide) IV MEDICAL HISTORY : AVM. SURGICAL HISTORY : Appendectomy. section. AVM repair. ENCOUNTER: Subsequent ACUITY: 2 day PAIN SCORE: 3/10 LOCATION: cranial TECHNIQUE: Multiplanar, multisequence MRI of the brain was performed both prior to and following the administrat ion of paramagnetic contrast. FINDINGS: There is a 5.4 cm vascular malformation in the upper right frontoparietal region characteristic of hi story of arteriovenous malformation. His previous craniotomy. No recent infarct identified. No signif icant mass effect or shift. No hydrocephalus. No abnormal extra-axial fluid. Heterogeneous enhancemen t is noted within the vascular malformation postcontrast. CONCLUSION: 1. 5.4 cm vascular malformation in the right hemisphere with overlying craniotomy characteristic of h istory of arteriovenous malformation. Currently no mass effect, recent infarct or abnormal extra-axia l fluid. 2. Retention cyst right maxillary sinus. Beau Shannon MD on June 15, 2017 at 21:43 Board Certified Radiologist. This report was verified electronically.
--- NOTE | 2017-06-15 21:50 | RADRPT ---
EXAM DATE/TIME: 06/15/2017 20:34 [facility] COMPARISON: No previous studies available for comparison. INDICATIONS : AVM. MEDICAL HISTORY : AVM. SURGICAL HISTORY : section. Appendectomy. AVM repair. ENCOUNTER: Subsequent ACUITY: 2 day PAIN SCORE: 3/10 LOCATION: cranial Please note a normal MRA of the brain does not entirely exclude the possibility of a small aneurysm, nor the possibility of distal intracranial vessel disease. TECHNIQUE: 3D time of flight MRA was performed. Source images, multiplanar STS MIP, and 3D volume MIP reconstru ctions were reviewed. FINDINGS: There is an arteriovenous malformation in the right hemisphere with numerous superficial collaterals noted over both hemispheres. The distal vertebral artery, basilar artery and both internal carotid ar teries are patent. Anterior, middle and posterior cerebral arteries also patent. CONCLUSION: 1. Arteriovenous malformation as above with numerous collaterals on superficial aspect of both hemisp heres. No vascular occlusions identified. Beau Shannon MD on June 15, 2017 at 21:47 Board Certified Radiologist. This report was verified electronically.
[2017-06-15] MEDS: levETIRAcetam 500 MG TAB PO SCH (22:28)
[2017-06-16 01:57] VITALS: BP 107/56; PULSE 74; RESP 16; TEMP 98; O2SAT 99
[2017-06-16 06:35] VITALS: BP 125/55; PULSE 65; RESP 16; TEMP 98.2; O2SAT 99
[2017-06-16 08:00] VITALS: BP 117/71; PULSE 66; RESP 18; TEMP 98.3; O2SAT 99
[2017-06-16] MEDS: levETIRAcetam 500 MG TAB PO SCH (08:07)
[2017-06-16] MEDS: GABAPENTIN 300 MG CAP PO SCH (08:08)
[2017-06-16] MEDS: SODIUM CHLORIDE 0.9% FLUSH 10 ML FLUSH IV FLUSH SCH (08:08)
[2017-06-16 09:45] LABS: AUTOMATED NEUTROPHIL # 5.9 TH/MM3 (1.8-7.7); BASOPHIL % 0.2 % (0.0-2.0); HEMATOCRIT 35.8 % (35.0-46.0); HEMO FLAGS DIFF FINAL; LYMPH % 26.6 % (9.0-44.0); LYMPHOCYTE # 2.4 TH/MM3 (1.0-4.8); MEAN CELL VOLUME 77.7 FL (80.0-100.0); MEAN CORPUSCULAR HEMOGLOBIN 24.6 PG (27.0-34.0); MEAN CORPUSCULAR HGB CONC 31.6 % (32.0-36.0); MONO % 6.8 % (0.0-8.0); NEUT % 66.4 % (16.0-70.0); PLATELET COUNT 249 TH/MM3 (150-450); RED BLOOD COUNT 4.61 MIL/MM3 (4.00-5.30); WHITE BLOOD COUNT 8.9 TH/MM3 (4.0-11.0)
[2017-06-16 10:04] LABS: ALT (GPT) 14 U/L (10-53); ANION GAP 9 MEQ/L (5-15); BICARBONATE 24.8 MEQ/L (21.0-32.0); CHLORIDE 107 MEQ/L (98-107); GLOMERULAR FILTRATION RATE 122 ML/MIN (>89); POTASSIUM 3.6 MEQ/L (3.5-5.1); SODIUM (NA) 141 MEQ/L (136-145)
[2017-06-16 10:11] LABS: ALKALINE PHOSPHATASE 61 U/L (45-117); AST (GOT) 8 U/L (15-37); BLOOD UREA NITROGEN 10 MG/DL (7-18); TOTAL BILIRUBIN ADULT 0.2 MG/DL (0.2-1.0)
[2017-06-16] MEDS ORDERED: GABA600T PO (10:28)
[2017-06-16] MEDS ORDERED: LEVE500 PO (10:28)
--- NOTE | 2017-06-16 10:34 | HHI.PR ---
Subjective Remarks Follow up for multiple seizures. Patient is doing much better today. No further episodes of sz. No fever, chills. Wants to go home. EEG done and report pending. She wants to continue to follow up with Neurologist Dr. Simmons in the outpatient setting. Objective Vitals Vital Signs Date Time Temp Pulse Resp B/P (MAP) Pulse Ox O2 Delivery O2 Flow Rate FiO2 06/16/17 06:35 98.2 65 16 125/55 (78) 99 06/16/17 01:57 98.0 74 16 107/56 (73) 99 06/15/17 21:57 98.2 80 18 131/82 (98) 95 06/15/17 16:00 98.2 83 20 120/72 (88) 98 06/15/17 12:00 98.2 88 20 135/76 (95) 97 I/O 06/15/17 06/15/17 06/15/17 06/16/17 06/16/17 06/16/17 07:00 15:00 23:00 07:00 15:00 23:00 Intake Total 1100 ml 360 ml Balance 1100 ml 360 ml Intake Oral 360 ml IV Total 1100 ml # Voids 2 # Bowel Movements 0 Result Diagram: 06/16/17 0846 06/16/17 0846 Imaging Last Impressions Head Magnetic Resonance Angiography 06/15/17 0000 Signed Impressions: Service Date/Time: Thursday, June 15, 2017 20:34 - CONCLUSION: 1. Arteriovenous malformation as above with numerous collaterals on superficial aspect of both hemispheres. No vascular occlusions identified. Beau Shannon MD Brain MRI 06/15/17 0000 Signed Impressions: Service Date/Time: Thursday, June 15, 2017 20:34 - CONCLUSION: 1. 5.4 cm vascular malformation in the right hemisphere with overlying craniotomy characteristic of history of arteriovenous malformation. Currently no mass effect, recent infarct or abnormal extra-axial fluid. 2. Retention cyst right maxillary sinus. Beau Shannon MD Abdomen/Pelvis CT 06/14/17 8536 Signed Impressions: Service Date/Time: Thursday, June 15, 2017 01:03 - CONCLUSION: 1. No radiopaque renal calculi or obstructive uropathy. 2. Cholelithiasis. 3. Appendix is not directly visualized. 4. 3.5 x 3.0 x 3.1 cm probable right ovarian cyst. Jose Martinez MD Head CT 06/14/17 1246 Signed Impressions: Service Date/Time: Thursday, June 15, 2017 00:59 - CONCLUSION: 1. Postsurgical features of prior right frontoparietal craniotomy with heterogeneous diffuse encephalomalacic defect and dystrophic ossifications in the right parietal high convexities. 2. No acute intracranial abnormality. Jose Martinez MD Objective Remarks GENERAL: AOX3, NAD. SKIN: Warm and dry. HEAD: Normocephalic. EYES: No scleral icterus. No injection or drainage. NECK: Supple, trachea midline. No JVD or lymphadenopathy. CARDIOVASCULAR: Regular rate and rhythm without murmurs, gallops, or rubs. RESPIRATORY: Breath sounds equal bilaterally. No accessory muscle use. GASTROINTESTINAL: Abdomen soft, non-tender, nondistended. MUSCULOSKELETAL: No cyanosis, or edema. BACK: Nontender without obvious deformity. No CVA tenderness. Procedures EEG - report pending. A/P Problem List: (1) AVM (arteriovenous malformation) brain ICD Code: Q28.2 - Arteriovenous malformation of cerebral vessels (2) Recurrent seizures ICD Code: G40.909 - Epilepsy, unspecified, not intractable, without status epilepticus Status: Acute Assessment and Plan Ms. Ellis is a 42-year-old female with a history of brain AVM, seizure activities who presented to the emergency department due to multiple seizure activities as she was returning home after discharge from emergency department on 06/14/2017. - Multiple seizure activities - Status post 1 g IV Primary emergency department. - Continue 500 mg Keppra BID. - Continue gabapentin 600 mg 3 times a day. - Ativan for acute seizure activities. - Brain AVM - Patient apparently had some craniotomy done when she was 5 years old. Does not recall if she had require leaving of aneurysm or any other hardware placed. - Brain MRI, MRA did not show any acute findings. - Patient wants to follow up with Dr. Simmons in the outpatient setting. We will refer her to see Dr. Simmons. Full code. SCDs. Discharge patient to home Condition on discharge: Improved Regular Diet as tolerated Ad Susannah activity Rx written: - Keppra 500mg BID - Gabapentin 600mg TID. NO Driving for 6 months unless cleared by a physician. Follow-up with primary care physician within one week and Neurology (Dr. Simmons) within 2 weeks. Meredith Lawson DO Jun 16, 2017 10:34
--- NOTE | 2017-06-17 06:19 | MG ---
cc: RODRIGO PINEDA MD Lab No: [id number] Date: 06/16/2017 Age: 42 Sex: F Race: EEG RECORD NUMBER [id number] DATE OF 1975 NOTE A 42-year-old female with a history of left-sided jerking, history of previous right frontoparietal craniotomy. History of seizures, migraines. FINDINGS Breach type rhythm with mild asymmetric slowing noted in the right frontal central region. Posterior rhythm on the left 7-9 Hz, 20-50 microvolt activity. Occasional sharp transients noted at C4. Reduced driving with photic stimulation. Movement artifact. Single lead EKG showing sinus rhythm. INTERPRETATION Mild asymmetric right frontal central slowing with appearance of breach rhythm and occasional sharp transients. However, no active seizures. Clinical correlation. Rodrigo Pineda MD MG/SSB /8:28 PM /6:11 AM
== END 2017-06-16 12:16 | disposition home or self-care (01) | DRG 100 ==
LOC: NEPC 21:58 → OBSVTOIN 06-15 01:37 → NEDA 06-15 01:37 → UNDOADMOB 06-15 01:38 → INTOOBSV 06-15 01:38 → NEDA 06-15 03:40 → N05A 06-15 03:40 → UNDODISOB 06-16 12:16
PROVIDERS: ADMIT Hospitalist; ATTEND Hospitalist
DX: G40.89 Other seizures (principal); Q28.2 Arteriovenous malformation of cerebral vessels; I69.254 Hemiplegia and hemiparesis following other nontraumatic intracranial hemorrhage affecting left non-dominant side; I69.292 Facial weakness following other nontraumatic intracranial hemorrhage; J45.909 Unspecified asthma, uncomplicated; R60.0 Localized edema; M79.89 Other specified soft tissue disorders; R53.1 Weakness
CPT/HCPCS: 70450; 70544; 70553; 74176; 80053; 80156; 80307; 81001; 83690; 83735; 84703; 85025; 85610; 85730; 93005; 93970; 95819; 96361; 96374; 96375; 99285; A9579; G8987-GP; G8988-GP; J1953; J2060; J7030